=== PATIENT | male | born 1995 | race Caucasian/White ===

== ENCOUNTER 2018-01-15 20:57 | Emergency (ER) | payer SELFPAY ==
[~2018-01-15] VITALS: Ht 177.8 cm; Wt 66.8 kg
[2018-01-15 21:24] VITALS: TEMP 97
[2018-01-15] MEDS ORDERED: PERCOCET 325 MG1 TA2 PO (22:33)
[2018-01-15] MEDS ORDERED: AMOXICILLIN 8751 TAB PO (22:33)
[2018-01-15 23:23] VITALS: BP 128/89; PULSE 61
== END 2018-01-15 23:00 | disposition home or self-care (01) ==
LOC: COL.ER 20:57
DX: S02.40CA Maxillary fracture, right side, initial encounter for closed fracture (principal); S02.81XA Fracture of other specified skull and facial bones, right side, initial encounter for closed fracture; F17.290 Nicotine dependence, other tobacco product, uncomplicated; Y04.2XXA Assault by strike against or bumped into by another person, initial encounter; Y92.410 Unspecified street and highway as the place of occurrence of the external cause
CPT/HCPCS: J2405; J3010

== ENCOUNTER 2018-01-23 06:40 | Day surgery (SDC) | payer SELFPAY ==
[2018-01-23] VITALS (7 sets, daily range): BP systolic 126–136; BP diastolic 70–92; PULSE 59–70; TEMP 98.1–98.9
[~2018-01-23] VITALS: Ht 177.8 cm; Wt 65.3 kg
[~2018-01-23 06:40] MED LIST: AMOXICILLIN 8751 TAB PO; PERCOCET 325 MG1 TA2 PO
[2018-01-23] MEDS ORDERED: TYLENOL 500MG500 MG PO (07:27)
[2018-01-23] MEDS ORDERED: NORCO 325 MG-51 TAB PO (12:18)
== END 2018-01-23 15:13 | disposition home or self-care (01) ==
LOC: SDCO 06:40
DX: S02.40EA Zygomatic fracture, right side, initial encounter for closed fracture (principal); S02.81XA Fracture of other specified skull and facial bones, right side, initial encounter for closed fracture; Y04.0XXA Assault by unarmed brawl or fight, initial encounter
CPT/HCPCS: C1713; J1100; J1170; J1885; J2175; J2405; J2704; J3010; J7120